=== PATIENT | female | born 1985 | race Caucasian/White ===

== ENCOUNTER 2016-09-05 16:07 | Emergency (ER) | payer OTHER ==
[~2016-09-05] VITALS: Ht 170.2 cm; Wt 60.8 kg
[~2016-09-05 16:07] MED LIST: METR500T PO
[2016-09-05 16:08] VITALS: BP 179/108
[2016-09-05] MEDS ORDERED: AMOX500C PO (16:26)
[2016-09-05] MEDS ORDERED: HYDR-971 PO (16:26)
--- NOTE | 2016-09-05 16:26 | PHYS DOC ---
Past Medical History Past Medical History: Asthma, Diabetes-Type II Past Surgical History: Additional Past Surgical Histo: PDA Additional Information: PPD Alcohol Use: Rarely Drug Use: None Adult General Chief Complaint Chief Complaint: DENTAL PROBLEM HPI HPI Patient is a 31 year old female presents emergency room the complain of left lower dental pain that began yesterday after she was eating chips and states that some of the tooth broke off. Patient states that she's been having problems with the same tooth for a long period of time. She states that she does have a dentist appointment this coming Tuesday. She denies antibiotic use within the past 30 days. She denies any additional injuries or concerns at this time. Review of Systems Review of Systems Constitutional: Denies fever or chills [] Eyes: Denies change in visual acuity, redness, or eye pain [] HENT: Denies nasal congestion or sore throat [] Respiratory: Denies cough or shortness of breath [] Cardiovascular: No additional information not addressed in HPI [] GI: Denies abdominal pain, nausea, vomiting, bloody stools or diarrhea [] : Denies dysuria or hematuria [] Musculoskeletal: Denies back pain or joint pain [] Integument: Denies rash or skin lesions [] Neurologic: Denies headache, focal weakness or sensory changes [] Endocrine: Denies polyuria or polydipsia [] Allergies Allergies Allergies Coded Allergies Type Severity Reaction Last Updated Verified tramadol Allergy Intermediate ITCHING 09/05/16 Yes Physical Exam Physical Exam Constitutional: Well developed, well nourished, no acute distress, non-toxic appearance. [] HENT: Normocephalic, atraumatic, bilateral external ears normal, oropharynx moist, no oral exudates, nose normal. There is no trismus. There is widespread dental caries and very stages of decay. The area of concern is the left first mandibular molar which is decayed into the pulp. There is some mild gingival swelling around the tooth. There is no purulent drainage or fluctuant pocket suggestive of an abscess. Eyes: PERRLA, EOMI, conjunctiva normal, no discharge. [] Neck: Normal range of motion, no tenderness, supple, no stridor. [] Cardiovascular:Heart rate regular rhythm, no murmur [] Lungs & Thorax: Bilateral breath sounds clear to auscultation [] Abdomen: Bowel sounds normal, soft, no tenderness, no masses, no pulsatile masses. [] Skin: Warm, dry, no erythema, no rash. [] Back: No tenderness, no CVA tenderness. [] Extremities: No tenderness, no cyanosis, no clubbing, ROM intact, no edema. [] Neurologic: Alert and oriented X 3, normal motor function, normal sensory function, no focal deficits noted. [] Psychologic: Affect normal, judgement normal, mood normal. [] Current Patient Data Vital Signs Vital Signs Date Time Temp Pulse Resp B/P Pulse Ox O2 Delivery O2 Flow Rate FiO2 09/05/16 16:08 98.7 118 20 98 Room Air 98.7 EKG EKG [] Radiology/Procedures Radiology/Procedures [] Course & Med Decision Making Course & Med Decision Making Pertinent Labs and Imaging studies reviewed. (See chart for details) [] Dragon Disclaimer Dragon Disclaimer This electronic medical record was generated, in whole or in part, using a voice recognition dictation system. Departure Departure Impression: Primary Impression: Dental caries Disposition: HOME, SELF-CARE Condition: GOOD Referrals: NO PCP (PCP) Patient Instructions: Dental Caries-Brief Additional Instructions: 1. Take the medication as prescribed. 2. Review the discharge instructions for self-care and reasons to return the emergency department. 3. Follow-up with the dentist this coming Tuesday as planned. Scripts Hydrocodone/Apap 5-325 ([place] 5-325 Tablet)1 Each Tablet1 Tab PO PRN Q6HRS PRN PAIN #15 TAB Prov:BEKA GALICIA 09/05/16 Amoxicillin 500 Mg [id number] Mg PO TID #30 CAP Prov:BEKA GALICIA 09/05/16 BEKA GALICIA Sep 05, 2016 16:26
== END 2016-09-05 16:35 | disposition home or self-care (01) ==
LOC: ER 16:07
DX: K02.9 Dental caries, unspecified (principal); K08.89 Other specified disorders of teeth and supporting structures; E11.9 Type 2 diabetes mellitus without complications; J45.909 Unspecified asthma, uncomplicated; F17.200 Nicotine dependence, unspecified, uncomplicated; Q25.0 Patent ductus arteriosus; Z88.6 Allergy status to analgesic agent
CPT/HCPCS: 99283

== ENCOUNTER 2016-09-23 16:42 | Emergency (ER) | payer OTHER ==
[~2016-09-23] VITALS: Ht 170.2 cm; Wt 60.8 kg
[~2016-09-23 16:42] MED LIST changes: +AMOX500C PO; +HYDR-971 PO
[2016-09-23 17:10] VITALS: BP 141/113
[2016-09-23] MEDS ORDERED: AMOX875T PO (18:07)
[2016-09-23] MEDS ORDERED: HYDR-971 PO (18:07)
--- NOTE | 2016-09-23 18:07 | PHYS DOC ---
Past Medical History Past Medical History: Asthma, Diabetes-Type II Past Surgical History: Additional Past Surgical Histo: PDA Alcohol Use: Rarely Drug Use: None Adult General Chief Complaint Chief Complaint: DENTAL PROBLEM HPI HPI Patient is a 31 year old female with history of diabetes II and asthma who presents with left lower gum dental pain for couple days. Patient denies any fever or trismus. She states she has an appointment with the dentist next week. Review of Systems Review of Systems Constitutional: Denies fever or chills [] Eyes: Denies change in visual acuity, redness, or eye pain [] HENT: Left lower gum dental pain Musculoskeletal: Denies back pain or joint pain [] Integument: Denies rash or skin lesions [] Neurologic: Denies headache, focal weakness or sensory changes [] Endocrine: Denies polyuria or polydipsia [] Allergies Allergies Allergies Coded Allergies Type Severity Reaction Last Updated Verified tramadol Allergy Intermediate ITCHING 09/05/16 Yes Physical Exam Physical Exam Constitutional: Well developed, well nourished, no acute distress, non-toxic appearance. [] HENT: Normocephalic, atraumatic, bilateral external ears normal, oropharynx moist, no oral exudates, nose normal. [] Eyes: PERRLA, EOMI, conjunctiva normal, no discharge. [] Approximately tooth #18 is decayed and broken. Scattered dental caries throughout her teeth, no gum swelling or redness noted. Skin: Warm, dry, no erythema, no rash. [] Back: No tenderness, no CVA tenderness. [] Extremities: No tenderness, no cyanosis, no clubbing, ROM intact, no edema. [] Neurologic: Alert and oriented X 3, normal motor function, normal sensory function, no focal deficits noted. [] Psychologic: Affect normal, judgement normal, mood normal. [] EKG EKG [] Radiology/Procedures Radiology/Procedures [] Course & Med Decision Making Course & Med Decision Making Pertinent Labs and Imaging studies reviewed. (See chart for details) Patient has infected dental caries. Discharged with amoxicillin for 10 days discharged with 10 tablets of [place] with a restriction she must fill the amoxicillin before she is given the [place], follow up with her dentist next week. Dragon Disclaimer Dragon Disclaimer This electronic medical record was generated, in whole or in part, using a voice recognition dictation system. Departure Departure Impression: Primary Impression: Dentalgia Additional Impression: Infected dental caries Disposition: 01 HOME, SELF-CARE Condition: STABLE Referrals: CJ VELAZQUEZ (PCP) Follow-up with your dentist as soon as possible Patient Instructions: Dental Caries Additional Instructions: You were seen for infected dental caries. Complete your antibiotics. Follow-up with your dentist as soon as possible. Come back to the ED if symptoms worsen. Scripts Amoxicillin 875 Mg Tablet1 Tab PO BID #20 TAB Prov:RAS PAIGE APRN 09/23/16 Hydrocodone/Apap 5-325 ([place] 5-325 Tablet)1 Each Tablet1-2 Tab PO Q4-6HRS #10 TAB MUST FILL AMOXICILLIN BEFORE PAIN MEDICINE Prov:RAS PAIGE APRN 09/23/16 Problem Qualifiers RAS PAIGE APRN Sep 23, 2016 18:07
== END 2016-09-23 18:15 | disposition home or self-care (01) ==
LOC: ER 16:42
DX: K02.9 Dental caries, unspecified (principal); K04.7 Periapical abscess without sinus; E11.9 Type 2 diabetes mellitus without complications; J45.909 Unspecified asthma, uncomplicated; Z88.5 Allergy status to narcotic agent
CPT/HCPCS: 99283

== ENCOUNTER 2017-03-02 20:04 | Emergency (ER) | payer OTHER ==
[~2017-03-02] VITALS: Ht 170.2 cm; Wt 71.2 kg
[~2017-03-02 20:04] MED LIST changes: +AMOX875T PO
[2017-03-02 20:24] VITALS: BP 175/103
[2017-03-02] MEDS ORDERED: TRAM-48 PO (21:19)
[2017-03-02] MEDS ORDERED: AMOX500T PO (21:19)
--- NOTE | 2017-03-02 21:19 | PHYS DOC ---
Past Medical History Past Medical History: Asthma, Diabetes-Type II Past Surgical History: , Other Additional Past Surgical Histo: pda Alcohol Use: Occasionally Drug Use: None Adult General Chief Complaint Chief Complaint: DENTAL PROBLEM HPI HPI Patient is a 31 year old female with no significant medical history who presents today with dental pain that began this evening while she was eating. Patient states she has already seen her dentist and has another appointment next week. She is requesting something for pain stating naproxen is not helping her. She quickly states she is allergic to tramadol it gives her itching. Review of Systems Review of Systems Constitutional: Denies fever or chills [] Eyes: Denies change in visual acuity, redness, or eye pain [] HENT: Dental pain Musculoskeletal: Denies back pain or joint pain [] Integument: Denies rash or skin lesions [] Neurologic: Denies headache, focal weakness or sensory changes Allergies Allergies Allergies Coded Allergies Type Severity Reaction Last Updated Verified adhesive tape Allergy Intermediate Rash 03/02/17 Yes tramadol Allergy Intermediate ITCHING 09/05/16 Yes Physical Exam Physical Exam Constitutional: Well developed, well nourished, no acute distress, non-toxic appearance. [] HENT: Normocephalic, atraumatic, bilateral external ears normal, oropharynx moist, no oral exudates, nose normal. [] Scattered infected dental caries noted throughout her teeth. Skin: Warm, dry, no erythema, no rash. [] Back: No tenderness, no CVA tenderness. [] Extremities: No tenderness, no cyanosis, no clubbing, ROM intact, no edema. [] Neurologic: Alert and oriented X 3, normal motor function, normal sensory function, no focal deficits noted. [] Psychologic: Affect normal, judgement normal, mood normal. [] Current Patient Data Vital Signs Vital Signs Date Time Temp Pulse Resp B/P (MAP) Pulse Ox O2 Delivery O2 Flow Rate FiO2 03/02/17 20:24 98.8 85 20 99 Room Air 98.8 EKG EKG [] Radiology/Procedures Radiology/Procedures [] Course & Med Decision Making Course & Med Decision Making Pertinent Labs and Imaging studies reviewed. (See chart for details) Patient is in the ED for dental pain. She is requesting something for pain. She has an appointment with [facility] week per her statement. We have seen this patient in the ED before with dental pain. Informed patient I'll send her home with antibiotics and Ultram for pain, she takes naproxen at home. She states she is allergic to it, it gives her itching. Recommended Zyrtec for itching. Follow-up with her dentist next week. Yomaira Disclaimer Yomaira Disclaimer This electronic medical record was generated, in whole or in part, using a voice recognition dictation system. Departure Departure Impression: Primary Impression: Dentalgia Additional Impression: Infected dental caries Disposition: HOME, SELF-CARE Condition: STABLE Referrals: NO PCP (PCP) follow up with your dentist as soon as you can Patient Instructions: Dental Caries Additional Instructions: You were seen with infected dental caries. Please follow-up with your dentist as soon as you can. You can take Zyrtec for itching while taking tramadol. Do not drive or operate machinery on the tramadol. Scripts Tramadol Hcl (ULTRAM) 50 Mg Tablet 1 TAB PO Q6HRS, #30 TAB Do not fill this prescription if patient has filled any narcotics in the last 7 days. This prescription cannot be filled past March 03, 2017. She must fill amoxicillin before being given Ultram. She can take Zyrtec for itching while taking Ultram. Prov: RAS PAIGE APRN 03/02/17 Amoxicillin (AMOXICILLIN) 500 Mg Tablet 1 TAB PO TID, #30 TAB Prov: RAS PAIGE APRN 03/02/17 Problem Qualifiers RAS PAIGE APRN Mar 02, 2017 21:19
== END 2017-03-02 21:27 | disposition home or self-care (01) ==
LOC: ER 20:04
DX: K04.7 Periapical abscess without sinus (principal); K02.9 Dental caries, unspecified; J45.909 Unspecified asthma, uncomplicated; E11.9 Type 2 diabetes mellitus without complications; Z88.6 Allergy status to analgesic agent; Z88.8 Allergy status to other drugs, medicaments and biological substances
CPT/HCPCS: 99283

== ENCOUNTER 2017-07-28 12:21 | Inpatient (IN) | payer OTHER ==
[2017-07-28 16:37] LABS: POC GLUCOSE 92 mg/dL (70-99)
[2017-07-28] MEDS ORDERED: HYDROcodone/APAP 5/325MG 1 TAB TABLET PO (18:30)
[2017-07-28] MEDS ORDERED: ALBUTEROL SULFATE 8GM INHALER. IH (19:15)
[2017-07-28] MEDS ORDERED: ALBUTEROL SULFATE 2.5 MG/3 ML NEBU. NEB (19:30)
[2017-07-28] MEDS ORDERED: metroNIDAZOLE 500 MG TABLET PO (21:00)
[2017-07-28] MEDS ORDERED: NON FORMULARY ITEM (Amoxicillin 500 MG) PO (21:00)
[2017-07-28] MEDS ORDERED: NON FORMULARY ITEM (Amoxicillin 1 TAB) PO ×2 (21:00)
[2017-07-28 21:47] LABS: POC GLUCOSE 149 mg/dL (70-99)
[2017-07-29] MEDS: HYDROcodone/APAP 5/325MG 1 TAB TABLET PO (00:06)
[2017-07-29 01:56] LABS: POC GLUCOSE 134 mg/dL (70-99)
[2017-07-29 06:10] LABS: INR 1.2 (0.8-1.1); PROTHROMBIN TIME PATIENT 14.6 SEC (11.7-14.0)
[2017-07-29 07:49] LABS: POC GLUCOSE 103 mg/dL (70-99)
[2017-07-29] MEDS: cloNIDine HCL 0.2 MG TABLET PO (08:08)
[2017-07-29] MEDS: MELOXICAM 7.5 MG TABLET PO (08:08)
[2017-07-29] MEDS: LORazepam 1 MG TABLET PO (08:08)
[2017-07-29] MEDS ORDERED: chlordiazePOXIDE HCL 25 MG CAPSULE PO (08:45)
[2017-07-29] MEDS ORDERED: CALCIUM CARBONATE 500 MG TAB.CHEW PO (08:45)
[2017-07-29] MEDS ORDERED: ONDANSETRON PF 4 MG/2 ML VIAL. IV (08:45)
[2017-07-29] MEDS ORDERED: PROCHLORPERAZINE 25 MG SUPP.RECT. PR (08:45)
[2017-07-29] MEDS ORDERED: PROCHLORPERAZINE 10 MG/2 ML VIAL. IV (08:45)
[2017-07-29] MEDS ORDERED: DEXTROSE 50% 25 GM / 50ML DISP.SYRIN. IV (08:45)
[2017-07-29 09:42] LABS: ADD MAN DIFF? NO
[2017-07-29 09:47] LABS: BASO # 0.1 x10^3/uL (0.0-0.2); BASO % 1 % (0-3); EOS # 0.1 x10^3/uL (0.0-0.7); EOS % 1 % (0-3); LYMPH % 12 % (24-48); MEAN CORPUSCULAR HEMOGLOBIN 33 pg (25-35); MEAN CORPUSCULAR HGB CONC 33 g/dL (31-37); MEAN CORPUSCULAR VOLUME 100 fL (79-100); MONO # 0.6 x10^3/uL (0.0-1.1); MONO % 7 % (0-9); NEUT # 6.6 x10^3uL (1.8-7.7); NEUT % 80 % (31-73); PLATELET COUNT 143 x10^3/uL (140-400); RED CELL DISTRIBUTION WIDTH 25.3 % (11.5-14.5); RETIC COUNT 4.9 % (0.5-2.5); WHITE BLOOD COUNT 8.3 x10^3/uL (4.0-11.0)
[2017-07-29] MEDS: FOLIC ACID 1 MG TABLET. PO (09:55)
[2017-07-29] MEDS: THIAMINE 100 MG TABLET. PO (09:55)
[2017-07-29] MEDS: MULTIVITAMIN with MINERAL TABLET. PO (09:55)
[2017-07-29] MEDS: PANTOPRAZOLE 40 MG TABLET.DR. PO (09:55)
[2017-07-29 10:00] LABS: AMMONIA 48 mcmol/L (11-34)
[2017-07-29 10:03] LABS: ALBUMIN 2.2 g/dL (3.4-5.0); ALBUMIN/GLOBULIN RATIO 0.5 (1.0-1.7); ALK PHOS 172 U/L (46-116); ALT (SGPT) 82 U/L (14-59); ANION GAP 10 (6-14); AST (SGOT) 311 U/L (15-37); BLOOD UREA NITROGEN 3 mg/dL (7-20); BUN/CREATININE RATIO 4 (6-20); CALCIUM 8.5 mg/dL (8.5-10.1); CARBON DIOXIDE 23 mmol/L (21-32); CHLORIDE 101 mmol/L (98-107); CREATININE 0.8 mg/dL (0.6-1.0); GFR 83.7; GLUCOSE 184 mg/dL (70-99); LIPASE 943 U/L (73-393); POTASSIUM 4.1 mmol/L (3.5-5.1); SODIUM 134 mmol/L (136-145); TOTAL BILIRUBIN 5.9 mg/dL (0.2-1.0); TOTAL PROTEIN 6.6 g/dL (6.4-8.2)
[2017-07-29 10:14] LABS: FOLATE 3.81 ng/ml (3.2-20.0); VITAMIN-B12 872 pg/mL (247-911)
[2017-07-29 11:19] LABS: SEDIMENTATION RATE 52 (0-25)
[2017-07-29 11:50] LABS: POC GLUCOSE 257 mg/dL (70-99)
[2017-07-29] MEDS: INSULIN ASPART 300 UNITS/3 ML INSULN.PEN SQ ×2 (11:57→17:04)
[2017-07-29 12:14] LABS: CSF PROTEIN 46.9 mg/dL (15.0-45.0)
[2017-07-29 12:14] LABS: CSF GLUCOSE 87 mg/dL (37-70)
[2017-07-29 12:23] LABS: CSF CLARITY CLEAR; CSF COLOR COLORLESS; CSF RBC COUNT 78; CSF WBC COUNT 0
[2017-07-29 12:36] LABS: ANISOCYTOSIS MOD; PLT ESTIMATE ADEQUATE (ADEQUATE)
[2017-07-29 12:39] LABS: BURR CELLS FEW
[2017-07-29 16:57] LABS: POC GLUCOSE 169 mg/dL (70-99)
[2017-07-29 22:00] LABS: POC GLUCOSE 207 mg/dL (70-99)
[2017-07-30 00:13] LABS: HCV ANTIBODY <0.1 s/co ratio (0.0-0.9); HEP A IGM ABDY Negative (Negative); HEP B SURFACE AG Negative (Negative)
[2017-07-30 05:25] LABS: ADD MAN DIFF? NO
[2017-07-30] MEDS: HYDROcodone/APAP 5/325MG 1 TAB TABLET PO ×2 (05:48→18:11)
[2017-07-30 06:20] LABS: BASO # 0.1 x10^3/uL (0.0-0.2); BASO % 1 % (0-3); EOS # 0.1 x10^3/uL (0.0-0.7); EOS % 1 % (0-3); HEMATOCRIT 25.5 % (36.0-47.0); HEMOGLOBIN 8.5 g/dL (12.0-15.5); LYMPH % 12 % (24-48); MEAN CORPUSCULAR HEMOGLOBIN 34 pg (25-35); MEAN CORPUSCULAR HGB CONC 33 g/dL (31-37); MEAN CORPUSCULAR VOLUME 101 fL (79-100); MONO # 0.5 x10^3/uL (0.0-1.1); MONO % 7 % (0-9); NEUT # 6.2 x10^3uL (1.8-7.7); NEUT % 79 % (31-73); PLATELET COUNT 160 x10^3/uL (140-400); RED BLOOD COUNT 2.53 x10^6/uL (3.50-5.40); RED CELL DISTRIBUTION WIDTH 25.3 % (11.5-14.5); WHITE BLOOD COUNT 7.9 x10^3/uL (4.0-11.0)
[2017-07-30 06:30] LABS: ALBUMIN 2.1 g/dL (3.4-5.0); ALBUMIN/GLOBULIN RATIO 0.5 (1.0-1.7); ALK PHOS 186 U/L (46-116); ALT (SGPT) 64 U/L (14-59); ANION GAP 11 (6-14); AST (SGOT) 222 U/L (15-37); BLOOD UREA NITROGEN 8 mg/dL (7-20); BUN/CREATININE RATIO 10 (6-20); CALCIUM 9.1 mg/dL (8.5-10.1); CARBON DIOXIDE 24 mmol/L (21-32); CHLORIDE 100 mmol/L (98-107); CREATININE 0.8 mg/dL (0.6-1.0); GFR 83.7; GLUCOSE 149 mg/dL (70-99); POTASSIUM 4.2 mmol/L (3.5-5.1); SODIUM 135 mmol/L (136-145); TOTAL PROTEIN 6.6 g/dL (6.4-8.2)
[2017-07-30 06:39] LABS: LIPASE 1274 U/L (73-393)
[2017-07-30] MEDS: PANTOPRAZOLE 40 MG TABLET.DR. PO (08:23)
[2017-07-30] MEDS: INSULIN ASPART 300 UNITS/3 ML INSULN.PEN SQ ×3 (08:28→17:15)
[2017-07-30] MEDS: cloNIDine HCL 0.2 MG TABLET PO (09:00)
[2017-07-30] MEDS: LORazepam 1 MG TABLET PO (09:00)
[2017-07-30 09:26] LABS: POC GLUCOSE 223 mg/dL (70-99)
[2017-07-30] MEDS: THIAMINE 100 MG TABLET. PO (09:35)
[2017-07-30] MEDS: FOLIC ACID 1 MG TABLET. PO (09:35)
[2017-07-30] MEDS: MULTIVITAMIN with MINERAL TABLET. PO (09:35)
[2017-07-30] MEDS: MELOXICAM 7.5 MG TABLET PO (09:35)
[2017-07-30 11:50] LABS: POC GLUCOSE 141 mg/dL (70-99)
[2017-07-30] MEDS: AMINO AC 3%/ELECTROLYTE/GLYCER 1,000 ML IV (12:01)
[2017-07-30] MEDS: PREGABALIN 75 MG CAPSULE PO ×2 (13:35→21:16)
[2017-07-30 16:53] LABS: POC GLUCOSE 234 mg/dL (70-99)
[2017-07-30 20:32] LABS: POC GLUCOSE 153 mg/dL (70-99)
[2017-07-30] MEDS: IBUPROFEN 400 MG TABLET. PO (21:16)
[2017-07-30] MEDS: MORPHINE SULFATE 2 MG/ML DISP.SYRIN. IV (21:17)
[2017-07-31] MEDS: HYDROcodone/APAP 5/325MG 1 TAB TABLET PO ×3 (04:25→22:18)
[2017-07-31] MEDS: MORPHINE SULFATE 2 MG/ML DISP.SYRIN. IV ×3 (04:25→22:55)
[2017-07-31] MEDS: AMINO AC 3%/ELECTROLYTE/GLYCER 1,000 ML IV ×3 (04:41→17:32)
[2017-07-31 05:02] LABS: ADD MAN DIFF? NO
[2017-07-31 05:31] LABS: BASO # 0.1 x10^3/uL (0.0-0.2); BASO % 1 % (0-3); EOS # 0.1 x10^3/uL (0.0-0.7); EOS % 1 % (0-3); HEMOGLOBIN 8.8 g/dL (12.0-15.5); LYMPH # 0.9 x10^3/uL (1.0-4.8); LYMPH % 12 % (24-48); MEAN CORPUSCULAR HEMOGLOBIN 34 pg (25-35); MEAN CORPUSCULAR HGB CONC 33 g/dL (31-37); MEAN CORPUSCULAR VOLUME 103 fL (79-100); MONO # 0.4 x10^3/uL (0.0-1.1); MONO % 6 % (0-9); NEUT # 5.9 x10^3uL (1.8-7.7); NEUT % 80 % (31-73); PLATELET COUNT 176 x10^3/uL (140-400); RED BLOOD COUNT 2.62 x10^6/uL (3.50-5.40); RED CELL DISTRIBUTION WIDTH 25.1 % (11.5-14.5); WHITE BLOOD COUNT 7.4 x10^3/uL (4.0-11.0)
[2017-07-31 06:05] LABS: ALBUMIN 2.1 g/dL (3.4-5.0); ALBUMIN/GLOBULIN RATIO 0.5 (1.0-1.7); ALK PHOS 180 U/L (46-116); ALT (SGPT) 57 U/L (14-59); ANION GAP 8 (6-14); AST (SGOT) 158 U/L (15-37); BLOOD UREA NITROGEN 10 mg/dL (7-20); BUN/CREATININE RATIO 13 (6-20); CALCIUM 8.6 mg/dL (8.5-10.1); CARBON DIOXIDE 25 mmol/L (21-32); CHLORIDE 101 mmol/L (98-107); CREATININE 0.8 mg/dL (0.6-1.0); GFR 83.7; GLUCOSE 193 mg/dL (70-99); POTASSIUM 4.4 mmol/L (3.5-5.1); SODIUM 134 mmol/L (136-145); TOTAL BILIRUBIN 4.1 mg/dL (0.2-1.0); TOTAL PROTEIN 6.7 g/dL (6.4-8.2)
[2017-07-31] MEDS: PANTOPRAZOLE 40 MG TABLET.DR. PO (07:54)
[2017-07-31] MEDS: INSULIN ASPART 300 UNITS/3 ML INSULN.PEN SQ ×3 (08:05→17:30)
[2017-07-31 08:06] LABS: POC GLUCOSE 236 mg/dL (70-99)
[2017-07-31] MEDS: cloNIDine HCL 0.2 MG TABLET PO (08:41)
[2017-07-31] MEDS: LORazepam 1 MG TABLET PO (08:41)
[2017-07-31] MEDS: MELOXICAM 7.5 MG TABLET PO (09:29)
[2017-07-31] MEDS: MULTIVITAMIN with MINERAL TABLET. PO (09:29)
[2017-07-31] MEDS: FOLIC ACID 1 MG TABLET. PO (09:29)
[2017-07-31] MEDS: THIAMINE 100 MG TABLET. PO (09:29)
[2017-07-31] MEDS: PREGABALIN 75 MG CAPSULE PO ×2 (09:29→21:09)
[2017-07-31 11:41] LABS: POC GLUCOSE 205 mg/dL (70-99)
[2017-07-31 13:10] LABS: CERULOPLASMIN 21.4 mg/dL (19.0-39.0)
[2017-07-31 17:32] LABS: POC GLUCOSE 233 mg/dL (70-99)
[2017-07-31 20:57] LABS: POC GLUCOSE 172 mg/dL (70-99)
[2017-08-01 04:24] LABS: ADD MAN DIFF? NO
[2017-08-01 04:28] LABS: BASO # 0.1 x10^3/uL (0.0-0.2); BASO % 1 % (0-3); EOS # 0.1 x10^3/uL (0.0-0.7); EOS % 1 % (0-3); HEMATOCRIT 23.3 % (36.0-47.0); HEMOGLOBIN 7.6 g/dL (12.0-15.5); LYMPH # 0.8 x10^3/uL (1.0-4.8); LYMPH % 12 % (24-48); MEAN CORPUSCULAR HEMOGLOBIN 33 pg (25-35); MEAN CORPUSCULAR HGB CONC 33 g/dL (31-37); MEAN CORPUSCULAR VOLUME 102 fL (79-100); MONO # 0.6 x10^3/uL (0.0-1.1); MONO % 9 % (0-9); NEUT # 5.3 x10^3uL (1.8-7.7); NEUT % 78 % (31-73); PLATELET COUNT 170 x10^3/uL (140-400); RED BLOOD COUNT 2.29 x10^6/uL (3.50-5.40); RED CELL DISTRIBUTION WIDTH 23.6 % (11.5-14.5); WHITE BLOOD COUNT 6.8 x10^3/uL (4.0-11.0)
[2017-08-01 04:48] LABS: ALBUMIN 1.7 g/dL (3.4-5.0); ALBUMIN/GLOBULIN RATIO 0.4 (1.0-1.7); ALK PHOS 150 U/L (46-116); ALT (SGPT) 37 U/L (14-59); ANION GAP 8 (6-14); AST (SGOT) 127 U/L (15-37); BLOOD UREA NITROGEN 13 mg/dL (7-20); BUN/CREATININE RATIO 16 (6-20); CALCIUM 8.8 mg/dL (8.5-10.1); CARBON DIOXIDE 24 mmol/L (21-32); CHLORIDE 103 mmol/L (98-107); CREATININE 0.8 mg/dL (0.6-1.0); GFR 83.7; GLUCOSE 237 mg/dL (70-99); LIPASE 1268 U/L (73-393); POTASSIUM 4.7 mmol/L (3.5-5.1); SODIUM 135 mmol/L (136-145); TOTAL BILIRUBIN 2.9 mg/dL (0.2-1.0); TOTAL PROTEIN 5.9 g/dL (6.4-8.2)
[2017-08-01] MEDS: MORPHINE SULFATE 2 MG/ML DISP.SYRIN. IV ×2 (05:16→17:29)
[2017-08-01 07:35] LABS: POC GLUCOSE 262 mg/dL (70-99)
[2017-08-01] MEDS: FOLIC ACID 1 MG TABLET. PO (08:23)
[2017-08-01] MEDS: PANTOPRAZOLE 40 MG TABLET.DR. PO (08:23)
[2017-08-01] MEDS: cloNIDine HCL 0.2 MG TABLET PO (08:24)
[2017-08-01] MEDS: LORazepam 1 MG TABLET PO (08:25)
[2017-08-01] MEDS: MULTIVITAMIN with MINERAL TABLET. PO (08:25)
[2017-08-01] MEDS: THIAMINE 100 MG TABLET. PO (08:25)
[2017-08-01] MEDS: MELOXICAM 7.5 MG TABLET PO (08:26)
[2017-08-01] MEDS: PREGABALIN 75 MG CAPSULE PO ×2 (08:27→20:56)
[2017-08-01] MEDS: HYDROcodone/APAP 5/325MG 1 TAB TABLET PO ×2 (08:27→22:33)
[2017-08-01] MEDS: INSULIN ASPART 300 UNITS/3 ML INSULN.PEN SQ ×3 (08:37→17:25)
[2017-08-01 09:12] LABS: VITAMIN-B12 742 pg/mL (247-911)
[2017-08-01] MEDS: AMINO AC 3%/ELECTROLYTE/GLYCER 1,000 ML IV ×2 (10:04→22:38)
[2017-08-01 11:19] LABS: POC GLUCOSE 188 mg/dL (70-99)
[2017-08-01 11:26] LABS: POC GLUCOSE 168 mg/dL (70-99)
[2017-08-01 13:01] LABS: AMMONIA 51 mcmol/L (11-34)
[2017-08-01 16:30] LABS: POC GLUCOSE 204 mg/dL (70-99)
[2017-08-01 18:11] LABS: ANA INTERP Negative (.)
[2017-08-01 21:14] LABS: MRSA BY PCR Positive (Negative)
[2017-08-01 21:50] LABS: POC GLUCOSE 268 mg/dL (70-99)
[2017-08-02] MEDS: HYDROcodone/APAP 5/325MG 1 TAB TABLET PO (04:45)
[2017-08-02 05:53] LABS: ADD MAN DIFF? NO
[2017-08-02 06:03] LABS: BASO % 1 % (0-3); EOS # 0.1 x10^3/uL (0.0-0.7); EOS % 1 % (0-3); HEMATOCRIT 25.3 % (36.0-47.0); HEMOGLOBIN 8.2 g/dL (12.0-15.5); LYMPH # 0.9 x10^3/uL (1.0-4.8); LYMPH % 12 % (24-48); MEAN CORPUSCULAR HEMOGLOBIN 33 pg (25-35); MEAN CORPUSCULAR HGB CONC 32 g/dL (31-37); MEAN CORPUSCULAR VOLUME 103 fL (79-100); MONO # 0.7 x10^3/uL (0.0-1.1); MONO % 10 % (0-9); NEUT # 5.7 x10^3uL (1.8-7.7); NEUT % 77 % (31-73); PLATELET COUNT 191 x10^3/uL (140-400); RED BLOOD COUNT 2.46 x10^6/uL (3.50-5.40); RED CELL DISTRIBUTION WIDTH 23.6 % (11.5-14.5); WHITE BLOOD COUNT 7.4 x10^3/uL (4.0-11.0)
[2017-08-02 06:24] LABS: % SAT IRON 30 % (15-34); IRON,SERUM 44 ug/dL (50-170)
[2017-08-02 06:28] LABS: ALBUMIN 1.8 g/dL (3.4-5.0); ALBUMIN/GLOBULIN RATIO 0.4 (1.0-1.7); ALK PHOS 147 U/L (46-116); ALT (SGPT) 37 U/L (14-59); ANION GAP 7 (6-14); AST (SGOT) 153 U/L (15-37); BLOOD UREA NITROGEN 14 mg/dL (7-20); BUN/CREATININE RATIO 18 (6-20); CALCIUM 9.1 mg/dL (8.5-10.1); CARBON DIOXIDE 25 mmol/L (21-32); CHLORIDE 101 mmol/L (98-107); CREATININE 0.8 mg/dL (0.6-1.0); GFR 83.7; GLUCOSE 208 mg/dL (70-99); LIPASE 787 U/L (73-393); POTASSIUM 4.6 mmol/L (3.5-5.1); SODIUM 133 mmol/L (136-145); TOTAL BILIRUBIN 2.5 mg/dL (0.2-1.0); TOTAL PROTEIN 6.3 g/dL (6.4-8.2)
[2017-08-02] MEDS: MORPHINE SULFATE 2 MG/ML DISP.SYRIN. IV (06:29)
[2017-08-02 07:36] LABS: POC GLUCOSE 220 mg/dL (70-99)
[2017-08-02 08:24] LABS: ALBUM 2.5 g/dL (2.9-4.4); ALPHA 1 0.2 g/dL (0.0-0.4); ALPHA 2 0.7 g/dL (0.4-1.0); BETA 1.1 g/dL (0.7-1.3); GAMMA 1.4 g/dL (0.4-1.8); M-SPIKE Not Observed g/dL (Not Observed); SPEP AG RATIO 0.7 (0.7-1.7)
[2017-08-02] MEDS: PREGABALIN 75 MG CAPSULE PO ×2 (09:52→21:36)
[2017-08-02] MEDS: MULTIVITAMIN with MINERAL TABLET. PO (09:52)
[2017-08-02] MEDS: cloNIDine HCL 0.2 MG TABLET PO (09:53)
[2017-08-02] MEDS: MELOXICAM 7.5 MG TABLET PO (09:54)
[2017-08-02] MEDS: PANTOPRAZOLE 40 MG TABLET.DR. PO (09:54)
[2017-08-02] MEDS: THIAMINE 100 MG TABLET. PO (09:54)
[2017-08-02] MEDS: FOLIC ACID 1 MG TABLET. PO (09:54)
[2017-08-02] MEDS: DULoxetine HCL 30 MG CAPSULE.DR PO (09:55)
[2017-08-02] MEDS: INSULIN ASPART 300 UNITS/3 ML INSULN.PEN SQ ×3 (10:08→17:21)
[2017-08-02 10:09] LABS: POC GLUCOSE 242 mg/dL (70-99)
[2017-08-02] MEDS: AMINO AC 3%/ELECTROLYTE/GLYCER 1,000 ML IV (14:44)
[2017-08-02] MEDS: LACTULOSE 20 GM/30 ML SOLUTION. PO (15:31)
[2017-08-02 17:14] LABS: POC GLUCOSE 240 mg/dL (70-99)
[2017-08-02 19:33] LABS: INR 1.2 (0.8-1.1); PROTHROMBIN TIME PATIENT 14.4 SEC (11.7-14.0)
[2017-08-02 22:08] LABS: NEG OBC UR NEG; POS OBC UR POS; U PREG PATIENT NEGATIVE (NEG)
[2017-08-02 22:15] LABS: COPPER LEVEL 81 ug/dL (72-166)
[2017-08-03] MEDS: HYDROcodone/APAP 5/325MG 1 TAB TABLET PO ×2 (03:46→17:37)
[2017-08-03 05:38] LABS: ADD MAN DIFF? NO
[2017-08-03 06:03] LABS: BASO # 0.1 x10^3/uL (0.0-0.2); BASO % 1 % (0-3); EOS # 0.1 x10^3/uL (0.0-0.7); EOS % 1 % (0-3); HEMATOCRIT 23.7 % (36.0-47.0); LYMPH # 0.8 x10^3/uL (1.0-4.8); LYMPH % 10 % (24-48); MEAN CORPUSCULAR HEMOGLOBIN 34 pg (25-35); MEAN CORPUSCULAR HGB CONC 34 g/dL (31-37); MEAN CORPUSCULAR VOLUME 102 fL (79-100); MONO # 0.8 x10^3/uL (0.0-1.1); MONO % 10 % (0-9); NEUT # 6.5 x10^3uL (1.8-7.7); NEUT % 79 % (31-73); PLATELET COUNT 188 x10^3/uL (140-400); RED BLOOD COUNT 2.33 x10^6/uL (3.50-5.40); RED CELL DISTRIBUTION WIDTH 22.7 % (11.5-14.5); WHITE BLOOD COUNT 8.3 x10^3/uL (4.0-11.0)
[2017-08-03 06:23] LABS: AMMONIA 37 mcmol/L (11-34)
[2017-08-03 06:31] LABS: ALBUMIN 1.8 g/dL (3.4-5.0); ALBUMIN/GLOBULIN RATIO 0.4 (1.0-1.7); ALK PHOS 133 U/L (46-116); ALT (SGPT) 47 U/L (14-59); ANION GAP 7 (6-14); AST (SGOT) 219 U/L (15-37); BLOOD UREA NITROGEN 13 mg/dL (7-20); BUN/CREATININE RATIO 19 (6-20); CALCIUM 8.6 mg/dL (8.5-10.1); CARBON DIOXIDE 26 mmol/L (21-32); CHLORIDE 100 mmol/L (98-107); CREATININE 0.7 mg/dL (0.6-1.0); GFR 97.6; GLUCOSE 135 mg/dL (70-99); LIPASE 626 U/L (73-393); POTASSIUM 4.6 mmol/L (3.5-5.1); SODIUM 133 mmol/L (136-145); TOTAL BILIRUBIN 2.5 mg/dL (0.2-1.0); TOTAL PROTEIN 6.4 g/dL (6.4-8.2)
[2017-08-03] MEDS: INSULIN ASPART 300 UNITS/3 ML INSULN.PEN SQ ×3 (08:00→17:00)
[2017-08-03] MEDS: MULTIVITAMIN with MINERAL TABLET. PO (08:07)
[2017-08-03] MEDS: LACTULOSE 20 GM/30 ML SOLUTION. PO (08:07)
[2017-08-03] MEDS: PANTOPRAZOLE 40 MG TABLET.DR. PO (08:08)
[2017-08-03] MEDS: THIAMINE 100 MG TABLET. PO (08:08)
[2017-08-03] MEDS: DULoxetine HCL 30 MG CAPSULE.DR PO (08:08)
[2017-08-03] MEDS: PREGABALIN 75 MG CAPSULE PO ×2 (08:08→21:01)
[2017-08-03] MEDS: MELOXICAM 7.5 MG TABLET PO (08:09)
[2017-08-03] MEDS: FOLIC ACID 1 MG TABLET. PO (08:09)
[2017-08-03] MEDS: cloNIDine HCL 0.2 MG TABLET PO (08:09)
[2017-08-03 11:22] LABS: POC GLUCOSE 131 mg/dL (70-99)
[2017-08-03 11:23] LABS: PLT ESTIMATE ADEQUATE (ADEQUATE)
[2017-08-03 11:24] LABS: ANISOCYTOSIS MOD
[2017-08-03 11:25] LABS: HYPOCHROMIA SLIGHT; STOMATOCYTES OCC
[2017-08-03 11:30] LABS: POC GLUCOSE 185 mg/dL (70-99)
[2017-08-03 16:42] LABS: POC GLUCOSE 141 mg/dL (70-99)
[2017-08-03 19:26] LABS: POC GLUCOSE 113 mg/dL (70-99)
[2017-08-03 21:49] LABS: POC GLUCOSE 262 mg/dL (70-99)
[2017-08-04] MEDS: HYDROcodone/APAP 5/325MG 1 TAB TABLET PO ×3 (01:33→21:00)
[2017-08-04 05:31] LABS: ADD MAN DIFF? NO
[2017-08-04 05:36] LABS: BASO # 0.1 x10^3/uL (0.0-0.2); BASO % 1 % (0-3); EOS # 0.1 x10^3/uL (0.0-0.7); EOS % 1 % (0-3); HEMATOCRIT 24.6 % (36.0-47.0); HEMOGLOBIN 8.3 g/dL (12.0-15.5); LYMPH % 15 % (24-48); MEAN CORPUSCULAR HEMOGLOBIN 35 pg (25-35); MEAN CORPUSCULAR HGB CONC 34 g/dL (31-37); MEAN CORPUSCULAR VOLUME 102 fL (79-100); MONO # 0.7 x10^3/uL (0.0-1.1); MONO % 11 % (0-9); NEUT # 4.8 x10^3uL (1.8-7.7); NEUT % 72 % (31-73); PLATELET COUNT 199 x10^3/uL (140-400); RED BLOOD COUNT 2.42 x10^6/uL (3.50-5.40); WHITE BLOOD COUNT 6.7 x10^3/uL (4.0-11.0)
[2017-08-04 05:44] LABS: AMMONIA 29 mcmol/L (11-34)
[2017-08-04 06:04] LABS: ALBUMIN/GLOBULIN RATIO 0.4 (1.0-1.7); ALK PHOS 153 U/L (46-116); ALT (SGPT) 45 U/L (14-59); ANION GAP 8 (6-14); AST (SGOT) 235 U/L (15-37); BLOOD UREA NITROGEN 16 mg/dL (7-20); BUN/CREATININE RATIO 20 (6-20); CALCIUM 9.1 mg/dL (8.5-10.1); CARBON DIOXIDE 27 mmol/L (21-32); CHLORIDE 100 mmol/L (98-107); CREATININE 0.8 mg/dL (0.6-1.0); GFR 83.7; GLUCOSE 163 mg/dL (70-99); LIPASE 698 U/L (73-393); POTASSIUM 4.8 mmol/L (3.5-5.1); SODIUM 135 mmol/L (136-145); TOTAL BILIRUBIN 2.3 mg/dL (0.2-1.0)
[2017-08-04] MEDS: MORPHINE SULFATE 2 MG/ML DISP.SYRIN. IV (06:10)
[2017-08-04 07:34] LABS: POC GLUCOSE 162 mg/dL (70-99)
[2017-08-04] MEDS: PANTOPRAZOLE 40 MG TABLET.DR. PO (08:36)
[2017-08-04] MEDS: MULTIVITAMIN with MINERAL TABLET. PO (08:36)
[2017-08-04] MEDS: THIAMINE 100 MG TABLET. PO (08:37)
[2017-08-04] MEDS: cloNIDine HCL 0.2 MG TABLET PO (08:37)
[2017-08-04] MEDS: DULoxetine HCL 30 MG CAPSULE.DR PO (08:38)
[2017-08-04] MEDS: MELOXICAM 7.5 MG TABLET PO (08:38)
[2017-08-04] MEDS: PREGABALIN 75 MG CAPSULE PO ×2 (08:39→21:00)
[2017-08-04] MEDS: FOLIC ACID 1 MG TABLET. PO (08:39)
[2017-08-04] MEDS: LACTULOSE 20 GM/30 ML SOLUTION. PO (08:39)
[2017-08-04] MEDS: INSULIN ASPART 300 UNITS/3 ML INSULN.PEN SQ ×3 (08:46→17:24)
[2017-08-04 10:48] LABS: POC GLUCOSE 80 mg/dL (70-99)
[2017-08-04 17:14] LABS: POC GLUCOSE 192 mg/dL (70-99)
[2017-08-04 21:14] LABS: POC GLUCOSE 122 mg/dL (70-99)
[2017-08-05 05:53] LABS: ADD MAN DIFF? NO
[2017-08-05 06:10] LABS: BASO # 0.1 x10^3/uL (0.0-0.2); BASO % 1 % (0-3); EOS # 0.1 x10^3/uL (0.0-0.7); EOS % 1 % (0-3); HEMATOCRIT 28.1 % (36.0-47.0); HEMOGLOBIN 9.3 g/dL (12.0-15.5); LYMPH # 0.9 x10^3/uL (1.0-4.8); LYMPH % 15 % (24-48); MEAN CORPUSCULAR HEMOGLOBIN 34 pg (25-35); MEAN CORPUSCULAR HGB CONC 33 g/dL (31-37); MEAN CORPUSCULAR VOLUME 101 fL (79-100); MONO # 0.6 x10^3/uL (0.0-1.1); MONO % 10 % (0-9); NEUT # 4.3 x10^3uL (1.8-7.7); NEUT % 73 % (31-73); PLATELET COUNT 197 x10^3/uL (140-400); RED BLOOD COUNT 2.77 x10^6/uL (3.50-5.40); WHITE BLOOD COUNT 5.9 x10^3/uL (4.0-11.0)
[2017-08-05 06:33] LABS: ALBUMIN 2.1 g/dL (3.4-5.0); ALBUMIN/GLOBULIN RATIO 0.4 (1.0-1.7); ALK PHOS 162 U/L (46-116); ALT (SGPT) 56 U/L (14-59); ANION GAP 6 (6-14); AST (SGOT) 301 U/L (15-37); BLOOD UREA NITROGEN 13 mg/dL (7-20); BUN/CREATININE RATIO 14 (6-20); CALCIUM 9.2 mg/dL (8.5-10.1); CARBON DIOXIDE 28 mmol/L (21-32); CHLORIDE 101 mmol/L (98-107); CREATININE 0.9 mg/dL (0.6-1.0); GLUCOSE 180 mg/dL (70-99); SODIUM 135 mmol/L (136-145); TOTAL BILIRUBIN 2.4 mg/dL (0.2-1.0); TOTAL PROTEIN 7.2 g/dL (6.4-8.2)
[2017-08-05 08:39] LABS: POC GLUCOSE 174 mg/dL (70-99)
[2017-08-05] MEDS: FOLIC ACID 1 MG TABLET. PO (09:23)
[2017-08-05] MEDS: PREGABALIN 75 MG CAPSULE PO (09:24)
[2017-08-05] MEDS: DULoxetine HCL 30 MG CAPSULE.DR PO (09:24)
[2017-08-05] MEDS: LACTULOSE 20 GM/30 ML SOLUTION. PO (09:24)
[2017-08-05] MEDS: MULTIVITAMIN with MINERAL TABLET. PO (09:24)
[2017-08-05] MEDS: THIAMINE 100 MG TABLET. PO (09:24)
[2017-08-05] MEDS: PANTOPRAZOLE 40 MG TABLET.DR. PO (09:26)
[2017-08-05] MEDS: cloNIDine HCL 0.2 MG TABLET PO (09:26)
[2017-08-05] MEDS: MELOXICAM 7.5 MG TABLET PO (09:27)
[2017-08-05] MEDS: INSULIN ASPART 300 UNITS/3 ML INSULN.PEN SQ ×2 (09:44→11:46)
[2017-08-05 10:40] LABS: LIPASE 836 U/L (73-393)
[2017-08-05 11:43] LABS: POC GLUCOSE 124 mg/dL (70-99)
[2017-08-05] MEDS: IBUPROFEN 400 MG TABLET. PO (16:58)
[2017-08-07] MEDS ORDERED: LACTULOSE 20 GM/30 ML SOLUTION. PO (09:00)
[2017-08-09] MEDS ORDERED: DULoxetine HCL 30 MG CAPSULE.DR PO (09:00)
== END 2017-08-05 17:16 | disposition home health service (06) | DRG 432 ==
LOC: 5 SOUTH 12:21
PROVIDERS: Internal Medicine
PROC: 009U3ZX Drainage of Spinal Canal, Percutaneous Approach, Diagnostic (ICD-10-PCS; principal; 2017-07-29)
PROC: B01B1ZZ Fluoroscopy of Spinal Cord using Low Osmolar Contrast (ICD-10-PCS; 2017-07-29)
DX: K70.40 Alcoholic hepatic failure without coma (principal); E43 Unspecified severe protein-calorie malnutrition; K70.11 Alcoholic hepatitis with ascites; G82.20 Paraplegia, unspecified; E11.42 Type 2 diabetes mellitus with diabetic polyneuropathy; M41.9 Scoliosis, unspecified; G62.1 Alcoholic polyneuropathy; L89.90 Pressure ulcer of unspecified site, unspecified stage; K70.31 Alcoholic cirrhosis of liver with ascites; D63.8 Anemia in other chronic diseases classified elsewhere; F10.20 Alcohol dependence, uncomplicated; F17.210 Nicotine dependence, cigarettes, uncomplicated; F31.9 Bipolar disorder, unspecified; F41.9 Anxiety disorder, unspecified; G40.909 Epilepsy, unspecified, not intractable, without status epilepticus; I10 Essential (primary) hypertension; H53.8 Other visual disturbances; Z80.1 Family history of malignant neoplasm of trachea, bronchus and lung; Z81.1 Family history of alcohol abuse and dependence; Z88.8 Allergy status to other drugs, medicaments and biological substances; Z86.14 Personal history of Methicillin resistant Staphylococcus aureus infection; Z87.74 Personal history of (corrected) congenital malformations of heart and circulatory system; Z91.048 Other nonmedicinal substance allergy status
CPT/HCPCS: 36415; 62270; 72146; 72148; 74176; 76700; 80053; 80074; 81025; 82140; 82390; 82525; 82607; 82746; 82945; 82962; 83540; 83550; 83690; 84157; 84165; 84550; 85025; 85045; 85610; 85651; 86038; 87071; 87075; 87205; 87641; 89051; 94640; 97110-GP; 97116-GP; 97162-GP; 97166-GO; 97530-GO; 97530-GP; 97535-GO; J1815; J2270